=== PATIENT | female | born 1940 | race African-American/Black ===

== ENCOUNTER 2024-07-03 07:59 | Inpatient (IN) | payer BC, MEDICAID ==
[~2024-07-03] VITALS: Ht 165.1 cm; Wt 78.9 kg
[~2024-07-03 07:59] MED LIST: ASPI-1497 MT; ATOR-388 MT; CLOP-31 MT; COR3 MT; LISI-186 MT; OMEP20TA23 MT
[2024-07-03] MEDS ORDERED: KETOROLAC 15MG/ML VIAL IM ONE (08:30)
[2024-07-03] MEDS ORDERED: ACETAMINOPHEN 325MG TABLET PO ONE (08:30)
[2024-07-03] MEDS: KETOROLAC 15MG/ML VIAL IM SCH (10:11)
[2024-07-03] MEDS: ACETAMINOPHEN 325MG TABLET PO SCH (10:12)
[2024-07-03] MEDS: LIDOCAINE 5% PATCH TOP SCH (10:13)
[2024-07-03 10:37] LABS: BASOPHILS % 0.3 % (0.0-2.0); EOSINOPHILS % 5.5 % (0.0-5.0); HEMOGLOBIN. 12.4 g/dL (12.0-16.0); LYMPHOCYTES % 29.7 % (20.0-50.0); MEAN CORPUSCULAR HEMOGLOBIN 29.7 pg (28.0-32.0); MEAN CORPUSCULAR HGB CONC 32.7 g/dL (31.0-37.0); MEAN CORPUSCULAR VOLUME 91.1 fL (81.0-99.0); MONOCYTES % 7.9 % (2.0-8.0); NEUTROPHILS % 56.6 % (40.0-76.0); PLATELET 284 x1000/uL (130-400); RED BLOOD CELL COUNT 4.18 mill/uL (4.2-5.4); RED CELL DISTRIBUTION WIDTH 13.1 % (11.6-14.6)
[2024-07-03 10:55] LABS: CHLORIDE 109 mEq/L (98-107); POTASSIUM 4.8 mEq/L (3.5-5.1); SODIUM 142 mEq/L (136-145)
[2024-07-03 10:56] LABS: CARBON DIOXIDE 30 mEq/L (21-32)
[2024-07-03 10:57] LABS: CALCIUM 9.3 mg/dL (8.7-10.4)
[2024-07-03 11:01] LABS: CREATININE 0.9 mg/dL (0.6-1.0); GLUCOSE 108 mg/dL (70-105)
[2024-07-03 11:02] LABS: UREA NITROGEN BLOOD 17 mg/dL (9-23)
[2024-07-03 11:03] LABS: ALANINE AMINOTRANSFERASE < 7 IU/L (10-49); ALBUMIN 3.9 g/dL (3.2-4.8); ASPARTATE AMINOTRANSFERASE 12 IU/L (<34)
[2024-07-03 11:04] LABS: BILIRUBIN DIRECT 0.1 mg/dL (<=3.0); BILIRUBIN TOTAL 0.7 mg/dL (0.1-1.0); PROTEIN TOTAL 7.2 g/dL (6.0-8.3)
[2024-07-03 11:12] LABS: CLARITY URINE CLOUDY (CLEAR); COLOR URINE YELLOW (YELLOW); GLUCOSE URINE NEGATIVE (NEGATIVE); KETONES URINE NEGATIVE (NEGATIVE); LEUKOCYTE ESTERASE URINE 3+ (NEGATIVE); NITRITE URINE POSITIVE (NEGATIVE); OCCULT BLOOD URINE TRACE (NEGATIVE); PH URINE 5.5 (4.5-8.0); PROTEIN URINE TRACE (NEGATIVE); SPECIFIC GRAVITY URINE 1.016 (1.005-1.030)
[2024-07-03 11:26] LABS: BACTERIA URINE 4+; FINE GRANULAR CASTS URINE 0-5 /lpf; HYALINE CASTS URINE 0-5 /lpf; SQUAMOUS EPITHELIAL CELL URINE 1+ /lpf (RARE/1+); WBC URINE TNTC /hpf (0-2)
[2024-07-03 11:27] LABS: RBC URINE NONE SEEN /hpf (0-2)
[2024-07-03] MEDS: CEFTRIAXONE 1GM/50ML 50 ML IV ONE (12:14)
[2024-07-03 14:26] VITALS: BP 190/64; PULSE 53; RESP 17; TEMP 36.4
[2024-07-03] MEDS ORDERED: ISOS20TA8 MT (14:55)
[2024-07-03] MEDS ORDERED: HYDR12.54 MT (15:00)
[2024-07-03] MEDS ORDERED: PANT20TA17 MT (15:00)
[2024-07-03] MEDS ORDERED: CARV25TA47 MT (15:00)
[2024-07-03] MEDS ORDERED: AMLO2.5T45 MT (15:00)
[2024-07-03] MEDS ORDERED: LISI40TA13 MT (15:00)
[2024-07-03] MEDS ORDERED: ALBU18HF2 IH (15:00)
[2024-07-03] MEDS ORDERED: AZEL6DRO5 EACHEYE (15:00)
[2024-07-03 16:00] VITALS: BP 186/71; PULSE 51; RESP 18; TEMP 36.4; O2SAT 100
[2024-07-03 16:53] LABS: HEPATITIS B SURFACE ANTIGEN NEGATIVE (Negative)
[2024-07-03] MEDS: CLONIDINE 0.2MG TABLET PO PRN (17:11)
[2024-07-03 17:14] LABS: HEPATITIS C AB NON REACTIVE (Neg) (Negative)
[2024-07-03 18:30] VITALS: BP 98/53
[2024-07-03 20:00] VITALS: BP 108/47; PULSE 45; RESP 19; TEMP 36.8; O2SAT 97
[2024-07-03] MEDS ORDERED: MEDICATION NOT ON FORMULARY EA (Atorvastatin Calcium (Lipitor) 1 TAB) MT SCH (21:00)
[2024-07-03] MEDS: ISOSORBIDE DINITRATE 20MG TABLET PO SCH (21:00)
[2024-07-03] MEDS: METOPROLOL TARTRATE 25MG TABLET PO SCH (21:00)
[2024-07-03] MEDS: ATORVASTATIN CALCIUM 40MG TABLET PO SCH (22:01)
[2024-07-04] VITALS (7 sets, daily range): BP systolic 140–200; BP diastolic 46–71; PULSE 46–77; RESP 17–18; TEMP 36.1–36.7; O2SAT 97–100
[2024-07-04] MEDS ORDERED: NALOXONE HCL 0.4MG/ML VIAL IV PRN (01:30)
[2024-07-04] MEDS ORDERED: HYDROCODONE/ACETAMINOPHEN 5/325MG TABLET PO PRN (01:30)
[2024-07-04] MEDS: CLOPIDOGREL 75MG TABLET PO SCH (08:38)
[2024-07-04] MEDS: LISINOPRIL 40MG TABLET PO SCH (08:39)
[2024-07-04] MEDS: ASPIRIN 81MG EC TABLET PO SCH (08:39)
[2024-07-04] MEDS: AMLODIPINE 2.5MG TABLET PO SCH (08:40)
[2024-07-04] MEDS: ENOXAPARIN 40MG/0.4ML SYR SUBCUT SCH (21:20)
[2024-07-05] VITALS: BP 132/55; PULSE 48; RESP 19; TEMP 36.6; O2SAT 100
[2024-07-05 04:00] VITALS: BP 136/61; PULSE 50; RESP 19; TEMP 36.4; O2SAT 100
[2024-07-05 08:00] VITALS: BP 194/65; PULSE 52; RESP 16; TEMP 36.7; O2SAT 99
[2024-07-05] MEDS: HYDRALAZINE 20MG/ML VIAL IV PRN (08:12)
[2024-07-05 13:00] VITALS: BP 171/77; PULSE 81; RESP 16; TEMP 36.8; O2SAT 100
[2024-07-05 16:00] VITALS: BP 117/45; PULSE 57; RESP 16; TEMP 36.5; O2SAT 96
[2024-07-05 17:51] VITALS: BP 117/45; PULSE 57; TEMP 97.7; O2SAT 96
== END 2024-07-05 18:20 | disposition home or self-care (01) | DRG 552 ==
LOC: ER 07:59 → 6WST 12:25 → EDBEDREQ 12:37 → EDBEDREQTM 12:37 → ENRESERV 12:40 → CANRESERV 12:40 → EDBEDREQSVC 13:13
PROVIDERS: ADMIT Internal Medicine; ATTEND Internal Medicine
DX: M48.061 Spinal stenosis, lumbar region without neurogenic claudication (principal); N39.0 Urinary tract infection, site not specified; M54.9 Dorsalgia, unspecified; E27.8 Other specified disorders of adrenal gland; E78.00 Pure hypercholesterolemia, unspecified; I25.10 Atherosclerotic heart disease of native coronary artery without angina pectoris; K57.30 Diverticulosis of large intestine without perforation or abscess without bleeding; I50.9 Heart failure, unspecified; I11.0 Hypertensive heart disease with heart failure; Z95.5 Presence of coronary angioplasty implant and graft; J44.9 Chronic obstructive pulmonary disease, unspecified; Z79.82 Long term (current) use of aspirin; Z79.899 Other long term (current) drug therapy; Z79.01 Long term (current) use of anticoagulants
CPT/HCPCS: 36415; 72131; 72148; 73502; 74176; 76705; 80048; 80076; 81003; 85025; 86705; 87077; 87186; 87340; 93970; 99285; A4565; A4606; J0360; J0696; J1650; J1885